=== PATIENT | female | born 2005 | race Caucasian/White ===

== ENCOUNTER 2023-07-17 02:56 | Inpatient (IN) | payer BC, OTHER ==
[2023-07-17] MEDS ORDERED: Lidocaine 1% (PF) 30 ML VIAL SC PRN ×2 (03:28→03:33)
[2023-07-17] MEDS ORDERED: Docusate 100 MG CAP PO PRN (03:28)
[2023-07-17] MEDS ORDERED: Methylergonovine 0.2 MG/ML VIAL IM PRN ×2 (03:28→09:25)
[2023-07-17] MEDS ORDERED: Acetaminophen 500 MG TAB PO PRN (03:28)
[2023-07-17] MEDS ORDERED: Ibuprofen 800 MG TAB PO PRN (03:28)
[2023-07-17] MEDS ORDERED: Ondansetron PF 4 MG/2 ML Vial IVP PRN (03:28)
[2023-07-17] MEDS ORDERED: Carboprost 250 MCG/ML AMP IM PRN (03:28)
[2023-07-17] MEDS ORDERED: Misoprostol 200 MCG TAB PR PRN (03:28)
[2023-07-17] MEDS ORDERED: hydrALAZINE 20 MG/ML VIAL SLOW IVP PRN ×2 (03:28→09:25)
[2023-07-17] MEDS ORDERED: Diphenoxylate HCl/Atropine Tablet PO PRN (03:28)
[2023-07-17] MEDS ORDERED: Promethazine HCl 25 MG/ML VIAL IM PRN (03:28)
[2023-07-17] MEDS ORDERED: Tranexamic Acid 1,000 MG/10 ML VIAL IVP PRN (03:28)
[2023-07-17] MEDS ORDERED: Oxytocin 30 units/NS 500 ML 500 ML IV SCH (03:30)
[2023-07-17] MEDS ORDERED: Penicillin G Potassium 5 MILL.UNITS in Sodium Chloride 0.9% 100 ML IVPB SCH (03:45)
[2023-07-17 03:51] LABS: Hematocrit 36.2 % (34.9-44.5); Hemoglobin 13.2 g/dL (12.0-15.5); Mean Corpuscular HGB CONC 36.5 g/dL (32.0-36.0); Mean Corpuscular Hemoglobin 33.8 pg (27.0-33.0); Mean Corpuscular Volume 92.8 fl (81.6-98.3); Mean Platelet Volume 12.7 fl (7.4-10.4); Platelet Count 164 10x3/uL (150-450); RBC Distribution Width 12.5 % (11.5-14.5); White Blood Cell (WBC) Count 14.4 10x3/uL (3.5-10.5)
[2023-07-17 04:14] VITALS: BMI 24.3
[2023-07-17 04:17] LABS: HBsAg Index 0.29 S/CO (0-0.99); Hep B Surf Ag - L&D Non-Reactive S/CO (NonReactive)
[2023-07-17 04:18] LABS: Syphilis Antibody Nonreactive (Nonreactive); Syphilis Antibody Index 0.08 S/CO (<1.00 Non-Reactive)
[2023-07-17] MEDS: Penicillin G Potassium 5 MILL.UNITS VIAL ONE (07:50)
[2023-07-17] MEDS: Penicillin G 2.5 MILL.units 2.5 MILL.UNITS in Premix 1 BAG IVPB SCH (07:50)
[2023-07-17] MEDS: Oxytocin 30 units/NS 500 ML 500 ML ONE (07:50)
[2023-07-17] MEDS: Lidocaine 1% (PF) 30 ML VIAL ONE (07:50)
[2023-07-17] MEDS: Erythromycin Base 0.5% Oint 1 GM TUBE ONE (08:40)
[2023-07-17] MEDS: Phytonadione Neonatal 1 MG/0.5 ML AMP ONE (08:41)
[2023-07-17] MEDS ORDERED: Polyethylene Glycol 3350 17 GM Packet PO PRN (09:25)
[2023-07-17] MEDS ORDERED: Misoprostol 200 MCG TAB VAG PRN (09:25)
[2023-07-17] MEDS ORDERED: diphenhydrAMINE 25 MG CAP PO PRN (09:25)
[2023-07-17] MEDS ORDERED: Milk Of Magnesia 30 ML UDCUP PO PRN (09:25)
[2023-07-17] MEDS ORDERED: Preparation H Ointment 28 GM TUBE PR PRN (09:25)
[2023-07-17] MEDS ORDERED: Bisacodyl 10 MG SUPP PR PRN (09:25)
[2023-07-17] MEDS ORDERED: Lanolin Ointment 7 GM TUBE TOP PRN (09:25)
[2023-07-17] MEDS: Prenatal Vitamin 1 TAB PO SCH (17:19)
[2023-07-17] MEDS: Ibuprofen 800 MG TAB PO SCH (17:19)
[2023-07-17] MEDS: Boostrix 0.5 ML (Tdap) VIAL (>/=7 yrs of age) IM ONE (21:42)
[2023-07-18] MEDS: Prenatal Vitamin 1 TAB PO SCH (08:32)
[2023-07-18] MEDS: Docusate 100 MG CAP PO SCH (09:41)
[2023-07-19 08:07] VITALS: BP 114/57; TEMP 98.6
== END 2023-07-19 14:40 | disposition home or self-care (01) | DRG 805 ==
LOC: CSHLD/OP 02:56 → CSHLD 03:23 → CSHPP 09:15
PROVIDERS: ADMIT Family Medicine; ATTEND Family Medicine
PROC: 10D07Z6 Extraction of Products of Conception, Vacuum, Via Natural or Artificial Opening (ICD-10-PCS; principal; 2023-07-17)
PROC: 10907ZC Drainage of Amniotic Fluid, Therapeutic from Products of Conception, Via Natural or Artificial Opening (ICD-10-PCS; 2023-07-17)
DX: O48.0 Post-term pregnancy (principal); O75.3 Other infection during labor; Z37.0 Single live birth; N39.0 Urinary tract infection, site not specified; Z3A.40 40 weeks gestation of pregnancy; Z91.048 Other nonmedicinal substance allergy status; O99.824 Streptococcus B carrier state complicating childbirth
CPT/HCPCS: 85027; 86780; 86850; 86900; 86901; 87340